=== PATIENT | female | born 1990 | race Two or more races ===

== ENCOUNTER 2016-10-07 12:45 | Emergency (ER) | payer SELFPAY ==
[~2016-10-07] VITALS: Ht 165.1 cm; Wt 83.9 kg
[~2016-10-07 12:45] MED LIST: TYLENOL
[2016-10-07 13:16] LABS: Basophils # (auto) 0 uL; Basophils % (auto) 0.2 % (0.0-2.0); CONDITION Y; Eosinophils # (auto) 0.2 uL; Eosinophils % (auto) 1.8 % (0.0-7.0); Hematocrit 37.2 % (36.0-46.0); Hemoglobin 12.4 g/dL (12.2-16.2); Lymphocytes # (auto) 3.7 uL; Lymphocytes % (auto) 40.1 % (10.0-50.0); Mean Corpuscular Hemoglobin 31.5 pg (28.0-32.0); Mean Corpuscular Hgb Conc. 33.3 g/dL (32.0-36.0); Mean Corpuscular Volume 94.8 fL (80.0-100.0); Monocytes # (auto) 0.7 uL; Monocytes % (auto) 7.2 % (0.0-12.0); Neutrophils # (auto) 4.6 uL; Neutrophils % (auto) 50.7 % (37.0-80.0); Platelet Count (auto) 289 10^3/uL (140-450); Red Cell Distribution Width 12.4 % (11.6-16.0); White Blood Cell 9.1 10^3/uL (4.4-10.8)
[2016-10-07 14:23] LABS: Albumin 4.1 g/dL (3.4-5.0); Anion Gap 7 (5-15); Aspartate Aminotransferase 12 U/L (15-37); BUN/Creatinine Ratio 13.6; Blood Urea Nitrogen 12 mg/dL (7-18); Carbon Dioxide 27 mmol/L (21-32); Chloride 110 mmol/L (98-107); GFR African American 100 mL/min; GFR Non-African American 83 mL/min; Glucose 99 mg/dL (74-106); Potassium 4.2 mmol/L (3.5-5.1); Sodium 144 mmol/L (136-145)
[2016-10-07 14:28] LABS: Alkaline Phosphatase 84 U/L (45-117); Bilirubin, Total 0.3 mg/dL (0.2-1.0); Total Protein 7.7 g/dL (6.4-8.2)
[2016-10-07] MEDS ORDERED: SODIUM CHLORIDE 0.9% 1,000 ML IV ONE (15:41)
[2016-10-07 16:11] LABS: INR 0.93 (0.9-1.15); Partial Thromboplastin Time 29.3 sec (22.64-33.71); Prothrombin Time 10.1 sec (9.37-12.3)
[2016-10-07] MEDS ORDERED: IOHEXOL 350 MG/ML 100ML IJ ONE (16:18)
[2016-10-07 17:24] VITALS: BP 132/77
== END 2016-10-07 17:33 | disposition home or self-care (01) ==
LOC: ER 12:47
DX: R07.89 Other chest pain (principal); R20.0 Anesthesia of skin
CPT/HCPCS: 36415; 71010; 71275; 80053; 84484; 85025; 85379; 85610; 85730; 93005; 94761; 96360; 99285; J7030; Q9967